=== PATIENT | male | born 1995 | race American Indian/Alaskan Native ===

== ENCOUNTER 2016-10-07 08:32 | Emergency (ER) | payer OTHER ==
[2016-10-07 08:58] LABS: Urine Drugs of Abuse Note Disclamer
[2016-10-07 09:07] LABS: Basophils % (Auto) 0.4 % (0.0-1.8); Eosinophils % (Auto) 0.4 % (0.0-4.3); Hematocrit 42.5 % (35.5-45.6); Hemoglobin 13.9 gm/dl (11.8-15.2); Mean Corpuscular HGB Conc 33 % (32-34); Mean Corpuscular Hemoglobin 27 pg (28-32); Mean Corpuscular Volume 82 fl (84-94); Platelet Count 257 K/mm3 (140-440); Red Blood Count 5.22 M/mm3 (3.65-5.03); Red Cell Distribution Width 14.2 % (13.2-15.2); White Blood Count 14.1 K/mm3 (4.5-11.0)
[2016-10-07 09:14] LABS: Bilirubin,Urine NEG (Negative); Blood,Urine LG (Negative); Ketones,Urine NEG (Negative); Leukocyte Esterase,Urine NEG (Negative); Mucus,Urine FEW /HPF; Nitrite,Urine NEG (Negative); Urobilinogen,Urine < 2.0 mg/dL (<2.0)
[2016-10-07] MEDS ORDERED: GEODON IM ONE (09:31)
[2016-10-07 09:35] LABS: Anion Gap 24 mmol/L; Blood Urea Nitrogen 11 mg/dL (9-20); Calcium 9.1 mg/dL (8.4-10.2); Carbon Dioxide 21 mmol/L (22-30); Chloride 99.9 mmol/L (98-107); Glucose 77 mg/dL (75-100); Potassium 3.9 mmol/L (3.6-5.0); Sodium 141 mmol/L (137-145)
[2016-10-07] MEDS ORDERED: WATER FOR INJ (PF) 10 ML ONE (09:36)
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
--- NOTE | 2016-10-07 10:43 | XRay Report ---
AP CHEST: HISTORY: Cough, low grade temperature AP view of the chest demonstrates a normal mediastinal and cardiac contour with clear lungs and normal bony and soft tissue structures. IMPRESSION: Unremarkable AP chest.
--- NOTE | 2016-10-07 10:44 | Cat Scan Report ---
CT HEAD WITHOUT CONTRAST: HISTORY: Altered mental status, psychosis. Serial contiguous axial images were obtained through the cranium. Intravenous contrast material was not administered. The ventricles are normal in size and appearance. There is no mass effect or midline shift. No areas of abnormally increased or decreased attenuation are seen. No mass lesion is seen. The mastoid air cells and visualized portions of the sinuses are normal. IMPRESSION: Cranial CT scan within normal limits.
[2016-10-07] MEDS ORDERED: XYLOCAINE 1% MPF 5 mL INFILTRATI ONE (10:47)
[2016-10-07] MEDS ORDERED: ZITHROMAX PO ONE (10:47)
[2016-10-07] MEDS ORDERED: ROCEPHIN IM ONE (10:47)
[2016-10-07] MEDS ORDERED: TYLENOL PO ONE (12:58)
[2016-10-07] MEDS ORDERED: NACL 0.9% 1000 ML 1,000 ML IV ONE (13:36)
[2016-10-07] MEDS ORDERED: ATIVAN IV ONE (13:36)
[2016-10-07] MEDS ORDERED: ATIVAN IM PRN (14:27)
--- NOTE | 2016-10-07 15:14 | Consultation ---
History of Present Illness - Reason for Consult Consult date: 10/07/16 Reason for consult: altered mental status - Chief Complaint Chief complaint: orthodoxy delusions - History of Present Psychiatric Illness Ed Amadeo is a 21 year old male seen for psychiatric consultation in the ER. His mother is also present to provide additional information. He is agitated and disorganized in thoughts and behavior. Upon arrival to the ER he required restraints for agitation/aggression. His condition worsened at home. He is hyperreligious and delusional. He provided minimal information on interview. He wanted his mother to speak for him. He was attending college prior to this episode. He has a similar episode 2016 but it does not escalate with the aggression. He had a negative neurology work up at that time. Medications and Allergies Allergies Allergy/AdvReac Type Severity Reaction Status Date / Time No Known Allergies Allergy Unverified 10/07/16 08:37 Home Medications Medication Instructions Recorded Confirmed Last Taken Type No Known Home Medications [No 10/07/16 10/07/16 Unknown History Reported Home Medications] Active Meds: Active Medications Lorazepam (Ativan) 1 mg IM Q4H PRN PRN Reason: Agitation Ziprasidone (Geodon) 20 mg PO BID EMMETT Past psychiatric history - Past Medical History Past Medical History: other (he was born premature) - past Psychiatric treatment and history psychiatric treatment history: similar episode 2016. Otherwise, no psychiatric history. - Social History Social history: single, lives with family, other ( day [employer]) Mental Status Exam - Vital signs Last Vital Signs Temp 99.6 F 10/07/16 11:33 Pulse 92 H 10/07/16 14:46 Resp 18 10/07/16 13:18 BP 136/76 10/07/16 14:33 Pulse Ox 100 10/07/16 13:18 - Exam Narrative exam: he is disorganized in thought and behavior. Unable to assess suicidal or homicidal thoughts. He is responding to internal stimuli. Orientation: person Affect: agitated Mood: congruent with affect Thought content: sabianist Thought Process: Disorganized Perceptions: other (responds to internal stimuli) Speech: minimal response Concentration: unable to pay attention Motor activity: agitated Level of consciousness: alert Sleep Symptoms: None (mother reports he is sleeping less) Interaction: uncooperative Results Result Diagrams: 10/07/16 08:57 03/12/17 08:57 Abnormal lab results 10/07/16 10/07/16 10/07/16 Range/Units 08:56 08:57 08:57 WBC 14.1 H (4.5-11.0) K/mm3 RBC 5.22 H (3.65-5.03) M/mm3 MCV 82 L (84-94) fl MCH 27 L (28-32) pg Lymph % (Auto) 9.0 L (13.4-35.0) % [place] % (Auto) 7.5 H (0.0-7.3) % [place] # 1.1 H (0.0-0.8) K/mm3 Seg Neutrophils % 82.7 H (40.0-70.0) % Seg Neutrophils # 11.7 H (1.8-7.7) K/mm3 Carbon Dioxide 21 L (22-30) mmol/L Urine WBC (Auto) 10.0 H (0.0-6.0) /HPF All other labs normal. Assessment and Plan Assessment and plan: Assessment: Acute psychosis Recommendation: Transfer to inpatient psychiatric unit once medically cleared. Continue medications ordered by the attending provider. Geodon 20mg bid Ativan 1mg IM q4 hours prn agitation
[2016-10-07 17:41] VITALS: BP 150/79
[2016-10-07] MEDS ORDERED: GEODON PO SCH (22:00)
== END 2016-10-07 17:43 ==
LOC: ED 08:32
DX: F23 Brief psychotic disorder (principal); F22 Delusional disorders; J06.9 Acute upper respiratory infection, unspecified; R82.99 Other abnormal findings in urine
CPT/HCPCS: 36415; 51701; 70450; 71010; 80048; 80307; 81001; 85025; 87086; 87591; 96361; 96372; 96374; 99285; G0480; J0696; J2060; J3486; J7030; 80320

== ENCOUNTER 2019-02-27 23:31 | Emergency (ER) | payer OTHER ==
[2019-02-28 00:29] LABS: Basophils % (Auto) 0.6 % (0.0-1.8); Eosinophils # (Auto) 0.4 K/mm3 (0.0-0.4); Eosinophils % (Auto) 5.1 % (0.0-4.3); Hematocrit 38.9 % (35.5-45.6); Lymphocytes % (Auto) 28.4 % (13.4-35.0); Mean Corpuscular HGB Conc 33 % (32-34); Mean Corpuscular Volume 84 fl (84-94); Monocytes # (Auto) 0.6 K/mm3 (0.0-0.8); Platelet Count 271 K/mm3 (140-440); Red Cell Distribution Width 14.1 % (13.2-15.2)
--- NOTE | 2019-02-28 00:37 | Emergency Department Report ---
ED Psych HPI - General Chief Complaint: Psych Stated Complaint: MH Time Seen by Provider: 02/28/19 00:22 Source: patient, family Mode of arrival: Ambulatory - History of Present Illness Initial Comments: Patient is 23 years old male with history of bipolar disorder. Patient brought to the emergency room by his mother who stated that patient has been accepted by [facility] but they don't have any bed available tonight. She stated that his psychiatric advised her to come to the ER to stabilize the patient for tonight. Mother stated that patient has been very agitated and restless for the last 2-3 days. Patient denied any auditory or visual hallucination. No suicidal or homicidal ideation. MD Complaint: other (agitated) - Related Data Home Medications Medication Instructions Recorded Confirmed Last Taken Divalproex Dr [Wing THOMPSON] 750 mg PO QAM 02/28/19 02/28/19 02/27/19 22:00 diphenhydrAMINE [Benadryl CAP] 50 mg PO QHS 02/28/19 02/28/19 02/27/19 22:00 risperiDONE [RisperDAL] 3 mg PO QHS 02/28/19 02/28/19 02/27/19 22:00 Allergies Allergy/AdvReac Type Severity Reaction Status Date / Time No Known Allergies Allergy Unverified 10/07/16 08:37 ED Review of Systems ROS: Stated complaint: MH Other details as noted in HPI Comment: All other systems reviewed and negative Constitutional: denies: chills, fever Respiratory: denies: cough, orthopnea Cardiovascular: denies: chest pain, palpitations Gastrointestinal: denies: abdominal pain Neurological: denies: headache, weakness Psychiatric: anxiety. denies: depression, auditory hallucinations, visual hallucinations, homicidal thoughts, suicidal thoughts ED Past Medical Hx - Past Medical History Previous Medical History?: Yes Hx Psychiatric Treatment: Yes (Bipolar, Depression) - Surgical History Past Surgical History?: No - Social History Smoking Status: Never Smoker Substance Use Type: None - Medications Home Medications: Home Medications Medication Instructions Recorded Confirmed Last Taken Type Divalproex Dr [Wing THOMPSON] 750 mg PO QAM 02/28/19 02/28/19 02/27/19 22:00 History diphenhydrAMINE [Benadryl CAP] 50 mg PO QHS 02/28/19 02/28/19 02/27/19 22:00 History risperiDONE [RisperDAL] 3 mg PO QHS 02/28/19 02/28/19 02/27/19 22:00 History ED Physical Exam - General Limitations: No Limitations General appearance: alert, in no apparent distress - Head Head exam: Present: atraumatic, normocephalic, normal inspection - Eye Eye exam: Present: normal appearance, PERRL - ENT ENT exam: Present: normal exam, normal orophraynx, mucous membranes moist - Neck Neck exam: Present: normal inspection, full ROM. Absent: tenderness, meningismus, lymphadenopathy, thyromegaly - Respiratory Respiratory exam: Present: normal lung sounds bilaterally - Cardiovascular Cardiovascular Exam: Present: regular rate, normal rhythm, normal heart sounds - GI/Abdominal GI/Abdominal exam: Present: soft, normal bowel sounds. Absent: distended, tenderness, guarding, rebound, rigid, organomegaly, mass, bruit, pulsatile mass, hernia ED Course Vital Signs 02/27/19 02/28/19 23:40 03:32 Temperature 98.6 F 98.3 F Pulse Rate 110 H 91 H Respiratory 20 20 Rate Blood Pressure 149/84 Blood Pressure 128/68 [Left] O2 Sat by Pulse 90 98 Oximetry ED Medical Decision Making - Lab Data Result diagrams: 02/28/19 00:07 02/28/19 00:07 - Medical Decision Making Patient is 23 years old male with history of bipolar disorder. Patient brought to the emergency room by his mother who stated that patient has been accepted by [facility] but they don't have any bed available tonight. She stated that his psychiatric advised her to come to the ER to stabilize the patient for tonight. Mother stated that patient has been very agitated and restless for the last 2-3 days. Patient denied any auditory or visual hallucination. No suicidal or homicidal ideation. Patient has been evaluated by mental health and advised that patient can be discharged to go straight to [facility] for admission. Critical care attestation.: If time is entered above; I have spent that time in minutes in the direct care of this critically ill patient, excluding procedure time. ED Disposition Clinical Impression: Bipolar 1 disorder Disposition: DC/TX-65 PSY HOSP/PSY UNIT Is pt being admited?: No Condition: Stable Instructions: Bipolar Disorder (ED) Referrals: KIMBER OAKES MD [Primary Care Provider] - 3-5 Days PRIMARY CARE, [Referring] - 3-5 Days
[2019-02-28 00:45] LABS: BUN/Creatinine Ratio 18; Blood Urea Nitrogen 18 mg/dL (9-20); Calcium 8.9 mg/dL (8.4-10.2); Hemolysis Index 6
[2019-02-28 01:21] LABS: Bilirubin,Urine NEG (Negative); Blood,Urine NEG (Negative); Color,Urine Colorless (Yellow); Protein,Urine <15 mg/dL mg/dL (Negative); RBC,Urine < 1.0 /HPF (0.0-6.0); Urobilinogen,Urine < 2.0 mg/dL (<2.0)
[2019-02-28 01:22] LABS: Amphetamine Screen,Urine PRESUMPTIVE NEGATIVE; Benzodiazepines Screen,Urine PRESUMPTIVE NEGATIVE; Cannabinoid Screen,Urine PRESUMPTIVE NEGATIVE; Cocaine Screen,Urine PRESUMPTIVE NEGATIVE; Methadone Screen,Urine PRESUMPTIVE NEGATIVE; Opiate Screen,Urine PRESUMPTIVE NEGATIVE
[2019-02-28 01:47] LABS: WBC,Urine < 1.0 /HPF (0.0-6.0)
[2019-02-28] MEDS ORDERED: ATIVAN ONE (03:26)
[2019-02-28] MEDS ORDERED: ATIVAN PO ONE (03:28)
[2019-02-28 03:33] VITALS: BP 128/68
== END 2019-02-28 06:49 ==
LOC: ED 23:31
DX: F31.9 Bipolar disorder, unspecified (principal); Z79.899 Other long term (current) drug therapy
CPT/HCPCS: 36415; 80048; 80307; 80320; 81001; 85025; 99284; G0480

== ENCOUNTER 2020-10-04 19:29 | Emergency (ER) | payer OTHER ==
--- NOTE | 2020-10-04 20:05 | Event Note ---
ED Screening Note Date of service: 10/04/20 Time: 20:04 ED Screening Note: pt is a 25 y/o male with hx of bipolar disorder, family mother states agitated, combative, decrease appetite, decreased meds ? . This initial assessment/diagnostic orders/clinical plan/treatment(s) is/are subject to change based on patients health status, clinical progression and re- assessment by fellow clinical providers in the ED. Further treatment and workup at subsequent clinical providers discretion. Patient/guardian urged not to elope from the ED as their condition may be serious if not clinically assessed and managed. Initial orders include:
[2020-10-04 21:09] LABS: Basophils % (Auto) 0.4 % (0.0-1.8); Eosinophils # (Auto) 0.1 K/mm3 (0.0-0.4); Eosinophils % (Auto) 1.1 % (0.0-4.3); Hemoglobin 14.2 gm/dl (11.8-15.2); Lymphocytes # (Auto) 1.7 K/mm3 (1.2-5.4); Lymphocytes % (Auto) 22.6 % (13.4-35.0); Mean Corpuscular HGB Conc 34 % (32-34); Mean Corpuscular Volume 85 fl (84-94); Monocytes # (Auto) 0.5 K/mm3 (0.0-0.8); Platelet Count 323 K/mm3 (140-440); Red Blood Count 4.93 M/mm3 (3.65-5.03)
[2020-10-04 21:27] LABS: Alanine Aminotransferase 73 units/L (7-56); Albumin 5.3 g/dL (3.9-5); BUN/Creatinine Ratio 10; Blood Urea Nitrogen 8 mg/dL (9-20); Calcium 10.1 mg/dL (8.4-10.2); Hemolysis Index 17
[2020-10-04 22:30] LABS: Bilirubin,Urine NEG (Negative); Blood,Urine NEG (Negative); Color,Urine Colorless (Yellow); Protein,Urine <15 mg/dL mg/dL (Negative); RBC,Urine < 1.0 /HPF (0.0-6.0); Urobilinogen,Urine < 2.0 mg/dL (<2.0)
[2020-10-04 22:35] LABS: Amphetamine Screen,Urine Negative; Benzodiazepines Screen,Urine Negative; Cocaine Screen,Urine Negative; Methadone Screen,Urine Negative; Opiate Screen,Urine Negative
[2020-10-04 22:41] LABS: WBC,Urine < 1.0 /HPF (0.0-6.0)
[2020-10-04 22:47] LABS: Cannabinoid Screen,Urine Positive
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
[2020-10-05] MEDS ORDERED: ZIPRASIDONE MESYLATE 20 MG VIAL IM ONE (00:22)
[2020-10-05 08:11] VITALS: BP 148/75
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
[2020-10-05] MEDS ORDERED: FLUPHENAZINE HCL 2.5 MG PO SCH (11:30)
[2020-10-05] MEDS ORDERED: DIVALPROEX DR 250 MG TAB PO SCH (22:00)
== END 2020-10-05 19:34 ==
LOC: ED 19:29
DX: F23 Brief psychotic disorder (principal); F32.9 Major depressive disorder, single episode, unspecified; Z79.899 Other long term (current) drug therapy; Z20.822 Contact with and (suspected) exposure to COVID-19
CPT/HCPCS: 36415; 80053; 80164; 80307; 81001; 84443; 85025; 96372; 99285; J3486; U0003; 80320; G0480